=== PATIENT | male | born 1945 | race Caucasian/White ===

== ENCOUNTER → 2016-07-08 | Outpatient (CLI) | payer MEDICARE, BC ==
[~2016-07-08] MED LIST: AMBIEN PO; ASPIRIN PO; ASPIRIN81 M2 PO; AVODART0.5 MG PO; CENTRUM CARDIO1 TAB PO; COLACE PO; DILANTIN PO; DIOVAN HCT 160-1 TAB PO; DOC-Q-LACE100 MG PO; DOXAZOSIN MESYLA4 MG PO; ENABLEX15 MG PO; FINASTERIDE5 M1 PO; FLEXERIL10 M1 PO; GLUCOPHAGE XR500 MG PO; GLUCOPHAGE500 M1 PO; HYDROCODON-ACE1 EAC7 PO; HYDROGESIC 5/501 CAP PO; LORTAB 7.5-5001 TAB PO; LOVASTATIN10 MG PO; LOVAZA1 G PO; METOPROLOL SUCC25 MG PO; PERCOCET 5-3251 TAB PO; PREVACID PO; ROBAXIN500 MG PO; SIMCOR 500-21 BOTTLE PO; TOPROL XL PO; UROXATRAL10 MG PO; VITAMIN B 6 DAILY; VITAMIN B-12500 MCG PO; VOLTAREN75 MG PO; WELCHOL625 MG PO
--- NOTE | ~2016-07-08 | US136 ---
[facility] A Service of [facility] & [facility] RADIOLOGY TEXT RESULTS PATIENT: MARKUS FREIRE LOCATION: CNIV : 41 UNIT #: [id number] AGE: [address]: Abdirashid Hickman MD SEX: M ORDER DR: [id number] [facility] [address] [place], [place] [address] [id number] O MR#: [id number] Acc #: [id number] NAME: MARKUS FREIRE. : 1945 SEX: M STUDY DATE/TIME: 07/08/2016 13:00 UNIT: CNIV ROOM: STUDY DESCRIPTION: U/L Ext Art Study Ltd Bil Attending Physician: Abdirashid Hickman M.D. Referring Physician: Abdirashid Hickman M.D. Ordering Physician: Abdirashid Hickman M.D. Primary Care Physician: Mik Osman M.D. MEDICAL IMAGING REPORT This report is preliminary unless electronic signature is present EXAM Ankle-brachial indices DATE OF EXAMINATION 07/08/2016 CLINICAL HISTORY Edema. FINDINGS The right brachial artery pressure is 137. The right dorsalis pedis is 147, with an gifwb-xs-xprolwyn index of 1.07. The right posterior tibial pressure is 152, with an rruor-wd-epbfhcav index of 1.11. The right digital pressure is 141, with a toe index of 1.03. The left brachial artery pressure is 110. The left dorsalis pedis pressures is 142, with an mpgfh-fc-uwkdlzqz index of 1.04. The left posterior tibial pressure is 154, with an cksjz-qd-argcqppu index of 1.12. The left digital pressure is 153, with a toe index of 1.12. The posterior tibial artery and dorsalis pedis artery waveforms are triphasic. The right and left ankle pulse volume recordings demonstrate a sharp upstroke and systolic peak, bilaterally. IMPRESSION 1. The right MP is 1.11, with no evidence of arterial insufficiency. 2. The left MP is 1.12, with no evidence of arterial insufficiency. Dictated by... Lenin Sams M.D. [facility] A Service of [facility] & [facility] RADIOLOGY TEXT RESULTS PATIENT: MARKUS FREIRE LOCATION: [facility] : 43 UNIT #: [id number] AGE: [address]: Abdirashid Hickman MD SEX: M ORDER DR: THIS IS AN ELECTRONICALLY VERIFIED REPORT Lenin Sams M.D. at 07/15/2016 7:44 AM Priscilla TD: 07/09/2016 10:53 JOB #: [id number] MEDICAL IMAGING REPORT Page 1 of 1 COPY
--- NOTE | ~2016-07-08 | US84 ---
[id number] [facility]. [facility] [address] [place], [place] [address] [id number] O MR#: [id number] Acc #: [id number] NAME: MARKUS FREIRE : 1945 SEX: M STUDY DATE/TIME: 07/08/2016 13:24 UNIT: CNIV ROOM: STUDY DESCRIPTION: US LE Veins Complete Williams Stdy Attending Physician: Abdirashid Hickman M.D. Referring Physician: Abdirashid Hickman M.D. Ordering Physician: Abdirashid Hickman M.D. Primary Care Physician: Mik Osman M.D. MEDICAL IMAGING REPORT This report is preliminary unless electronic signature is present EXAM Bilateral lower extremity duplex, 07/08/2016. HISTORY Bilateral lower extremity edema for 1 1/2 years. Diabetes and hypertension. Evaluate for deep vein thrombosis. TECHNIQUE Venous ultrasound examination of both lower extremities was performed using grayscale, spectral Doppler and color flow Doppler imaging. FINDINGS The examination is negative. There is no evidence of deep venous thrombus from the groin to the lower calf bilaterally. Visualized greater saphenous veins are also patent. IMPRESSION Negative examination. No evidence of lower extremity deep venous thrombosis. Dictated by... Homero Lancaster M.D. THIS IS AN ELECTRONICALLY VERIFIED REPORT Homero Lancaster M.D. at 07/08/2016 5:11 PM MUSHTAQ/derrick TD: 07/08/2016 15:25 JOB #: [id number] MEDICAL IMAGING REPORT Page 1 of 1 COPY
== END | disposition home or self-care (01) ==
LOC: CNIV 12:42
DX: I79.8 Other disorders of arteries, arterioles and capillaries in diseases classified elsewhere (principal); R60.0 Localized edema
CPT/HCPCS: 93922; 93970